=== PATIENT | male | born 1970 | race Two or more races ===

== ENCOUNTER 2025-01-12 15:13 | Emergency (ER) | payer MEDICAID, OTHER ==
[~2025-01-12] VITALS: Ht 175.3 cm; Wt 72.7 kg
[2025-01-12 15:40] VITALS: PULSE 101; RESP 14; O2SAT 96
[2025-01-12 16:14] LABS: Potassium 3.9 mmol/L (3.5-5.1); Sodium 144 mmol/L (136-145)
[2025-01-12 16:15] LABS: Anion Gap 10 (5-15); Carbon Dioxide 25 mmol/L (20-31)
[2025-01-12 16:16] LABS: Calcium 9.6 mg/dL (8.7-10.4)
[2025-01-12 16:19] LABS: Hematocrit 42.1 % (41.0-53.0); Hemoglobin 14.1 g/dL (13.5-17.5); Mean Corpuscular Hemoglobin 30.3 pg (28.0-32.0); Mean Corpuscular Volume 90.5 fL (80.0-100.0); Nucleated Red Blood Cells % 0.1 %
[2025-01-12 16:20] LABS: Glucose 86 mg/dL (74-106)
[2025-01-12 16:21] LABS: BUN/Creatinine Ratio 13.6 (10.0-20.0); Blood Urea Nitrogen 20 mg/dL (9-23)
[2025-01-12 16:34] LABS: Chloride 109 mmol/L (98-107)
[2025-01-12 16:52] LABS: Acetaminophen < 2.0 UG/ML (10.0-20.0); Salicylate < 3.0 mg/dL (-30)
[2025-01-12 19:23] LABS: Amphetamine Screen, Urine Pos (NEGATIVE); Barbiturate Scree,Urine Neg (NEGATIVE); Benzodiazephine Screen, Urine Neg (NEGATIVE); Cannabinoid Screen, Urine Neg (NEGATIVE); Cocaine Screen, Urine Neg (NEGATIVE); Opiate Scree,Urine Neg (NEGATIVE); Phencyclidine Screen, Urine Neg (NEGATIVE)
[2025-01-12 19:35] VITALS: PULSE 89; RESP 13; O2SAT 96
[2025-01-13 08:41] VITALS: PULSE 89; RESP 19; O2SAT 97
--- NOTE | 2025-01-13 11:17 | ED.PDOC ---
Psychiatric HPI Comments HPI: This is a 54 year old male BIBA presenting to the ED with chief complaint of SI. Patient reports that he wishes to end his own life and wants assistance at this time. Patient relays that he is not currently on any psychiatric medication, but has seen multiple psychiatrists throughout the years. Patient admits to ingesting 250mL of ETOH prior to arrival in the ED. Patient denies any HI, AH, VH, or further symptoms at this time. Initial Vitals BP: 104/70 HR: 109 RR: 18 O2: 98% Temp: 97.8F Past Medical History: HTN Past Surgical History: Left Hip Surgery Social History: Heavy ETOH use, denies drug use or cigarette use. Medications: Reviewed Allergies: NKDA MADDIE: MENTAL HPI: Poor Historian. 54-year-old male brought in by ambulance after the police has handcuffed him because he was running in the street which what sounds to be acting bizarre. Patient was brought here for psychiatric evaluation. Patient is homeless. Patient states that I no longer want to live. He does not want to share his plans however he did mentioned that he did attempt suicide in the past by shooting himself. Patient admits to use of alcohol but does not want to talk about his drug use. Patient wants to talk to his manager event and initially refused to speak to any camera but later agreed to speak to the psychiatrist via camera. Past Medical History: Past Surgical History: REVIEW OF SYSTEMS: CONSTITUTIONAL: Denies acute: fever, diaphoresis, chills, generalized weakness. HEAD: Denies acute: headache, photophobia Eyes: Denies acute: Double vision, vision loss, eye pain, eye discharge. EARS: Denies acute: tinnitus, hearing loss, ear discharge, ear pain, THROAT: Denies acute: sore throat, swelling, difficulty swallowing , pain with swallowing, change in voice. NECK: Denies acute: neck pain, neck swelling, stiff neck. HEART: Denies acute : chest pain, palpitations, LUNGS: Denies acute: SOB, wheezing, cough, hemoptysis ABDOMEN: Denies acute: abdominal pain, Nausea, Vomiting, diarrhea, melena , hematemesis, hematochezia SKIN: Denies acute: rash, redness, lesions, itchiness. EXTREMITIES: Denies acute: calf pain, numbness, tingling, weakness, denies pain in extremity. Denies acute: Low back pain. Neuro: Denies acute: focal neurological deficit, motor or sensory focal neurological deficit, tremors, seizure like activity, confusion, dizziness, change in mental status, loss of bowel or bladder function, cauda equina like symptoms. : Denies acute: dysuria, hematuria, flank pain, increase in urinary frequency. PSYCH: Denies acute: homicidal ideation. PHYSICAL EXAM: General: -----no---acute distress, awake and alert. Head: normocephalic, atraumatic. Neck: supple, trachea is midline, no swelling. Throat: Normal phonation. Eyes:, no erythema, no purulent discharge, no proptosis, no icterus. Heart: regular rate, regular rhythm, no significant murmur appreciated. Lungs: no apparent respiratory distress, Able to speak in full sentences. No wheezing, no rhonchi, no crackles. No stridors Clear to auscultation bilaterally. Abdomen: non tender to palpation, non distended, soft, no guarding, no rebound, + bowel sounds. Neuro: Awake, Alert, oriented to name, self, situation, follows commands GCS=15. Speech is normal. Skin: no petechia, no purpura, no cyanosis, non-pale, not jaundice. Lower extremities: --no - Pitting edema no deformity, no focal swelling, no calf TTP. Makes eye contact. moves all four extremities. Face: no apparent facial droop. ED COURSE: DISCLAIMER: This medical document was created using an electronic medical record system with voice recognition software and computerized dictation system. Although this document has been carefully reviewed, there might still be some phonetic and typographical errors. Occasional wrong-word or "sound-alike" substitutions may have occurred due to the inherent limitations of voice recognition software. These areas are purely typographical due to imperfections of the software programs and do not reflect any compromise in the patient's medical care. Please read the chart carefully and recognize, using context, where these substitutions have occurred. Chief Complaint: Mental Health Time Seen by MD: 15:45 Reviewed Notes: Medications, Allergies Information Source: Patient Mode of Arrival: EMS Was a procedure done? Was a procedure done?: No Psych Differential Dx Suicidal Differential Dx: Alcohol Abuse, Anxiety, Bipolar Disorder, Conversion Disorder, Depression, Homicidal, Laceration, Panic Disorder, Personality Disorder, Schizoprenia, Substance Abuse X-Ray, Labs, Meds, VS Vital Signs Date Time Temp Pulse Resp B/P (MAP) Pulse Ox O2 Delivery O2 Flow Rate FiO2 01/13/25 00:00 87 19 136/83 (100) 01/13/25 00:00 86 01/12/25 22:00 84 20 133/70 (91) 01/12/25 20:00 90 01/12/25 19:35 89 13 96 Room Air* 0 21 01/12/25 19:30 97.7 89 13 146/96 (113) 97 97.7 01/12/25 18:00 83 14 145/85 (105) 97 01/12/25 15:40 97.8 101 14 137/70 (92) 96 97.8 01/12/25 15:40 101 14 96 Room Air* 0 21 01/12/25 15:17 97.8 109 18 104/70 98 97.8 Lab Test 01/12/25 15:55 01/12/25 15:45 Range/Units White Blood Count 7.9 4.4-10.8 10^3/uL Red Blood Count 4.65 4.5-5.90 10^6/uL Hemoglobin 14.1 13.5-17.5 g/dL Hematocrit 42.1 41.0-53.0 % Mean Corpuscular Volume 90.5 80.0-100.0 fL Mean Corpuscular Hemoglobin 30.3 28.0-32.0 pg Mean Corpuscular Hemoglobin Concent 33.5 32.0-36.0 g/dL Red Cell Distribution Width 13.9 11.8-14.3 % Platelet Count 384 140-450 10^3/uL Mean Platelet Volume 6.7 L 6.9-10.8 fL Neutrophils (%) (Auto) 62.5 37.0-80.0 % Lymphocytes (%) (Auto) 28.2 10.0-50.0 % Monocytes (%) (Auto) 7.7 0.0-12.0 % Eosinophils (%) (Auto) 1.0 0.0-7.0 % Basophils (%) (Auto) 0.6 0.0-2.0 % Neutrophils # (Auto) 4.9 1.6-8.6 10 ^3/uL Lymphocytes # (Auto) 2.2 0.4-5.4 10 ^3/uL Monocytes # (Auto) 0.6 0-1.3 10 ^3/uL Eosinophils # (Auto) 0.1 0-0.8 10 ^3/uL Basophils # (Auto) 0 0-0.2 10 ^3/uL Nucleated Red Blood Cells 0.1 % Sodium Level 144 136-145 mmol/L Potassium Level 3.9 3.5-5.1 mmol/L Chloride Level 109 H 98-107 mmol/L Carbon Dioxide Level 25 20-31 mmol/L Anion Gap 10 5-15 Blood Urea Nitrogen 20 9-23 mg/dL Creatinine 1.47 H 0.700-1.30 mg/dL Glomerular Filtration Rate Calc 56 >90 mL/min BUN/Creatinine Ratio 13.6 10.0-20.0 Serum Glucose 86 74-106 mg/dL Calcium Level 9.6 8.7-10.4 mg/dL Salicylates Level < 3.0 -30 mg/dL Acetaminophen Level < 2.0 L 10.0-20.0 UG/ML Plasma/Serum Blood Alcohol 23.2 H <10 mg/dL Urine Opiates Screen Neg NEGATIVE Urine Fentanyl Screen Neg NEGATIVE Urine Barbiturates Screen Neg NEGATIVE Urine Phencyclidine Screen Neg NEGATIVE Urine Amphetamines Screen Pos NEGATIVE Urine Benzodiazepines Screen Neg NEGATIVE Urine Cocaine Screen Neg NEGATIVE Urine Cannabinoids Screen Neg NEGATIVE Time of 1ST Reevaluation: 16:45 Reevaluation 1ST: Unchanged Patient Education/Counseling: Diagnosis, Treatment Family Education/Counseling: No Family Present Assigned to Dr. dr. Hawkins. Patient is awaiting placement in a psychiatric facility. Comments MDM: patient presented with the above HPI.---psychiatric/suicidal ideation---workup was initiated. patient was found with the above mentioned diagnosis. the following medications were ordered: please refer to order lists of meds and tests obtained by myself Dr. Acharya. Patient ED course and VS have been stabilized. Patient has been reassessed in the ED and remained in a stable condition. Pertinent incidental findings were discussed with the patient and/or family. Patient/family voices understanding and is agreeable with plan. Patient has been observed in the ED adequate length of time to insure im provement/stability. Escalation of care considered: Consideration of escalation to observation or admission Patient was medically cleared. Patient was seen by Psychiatry. They recommend voluntary hold for psychiatric evaluation. They recommend trazodone 50 mg p.o. p.r.n. at nighttime only. All the reports of any imaging studies that were ordered by myself were reviewed by myself. Patient is awaiting manager social work in the morning and placement in his psychiatric facility. The care of this patient was signed out to my colleague Dr. Hawkins. Departure 1 Departure Time of Disposition: 16:17 Impression: Primary Impression: Patient needs psychiatric hold for evaluation Additional Impressions: Suicidal ideation Methamphetamine abuse Disposition: 30 STILL A PATIENT Condition: Stable Discharged With: Self Critical Care Note Critical Care Time?: No I personally scribed for VANESSA ACHARYA DO ([email or web address]) on 01/12/25 at 15:48. Electronically submitted by [employer] ([email or web address]). VANESSA ACHARYA DO Jan 12, 2025 15:48
--- NOTE | 2025-01-13 11:27 | DVHINCON2 ---
Date of Service if different f: Jan 12, 2025 Time of Service: 21:50 Consultation ([facility]) Consulting Physician: HAYDEN BARTLETT MD Labs Laboratory Tests Test 01/12/25 15:45 01/12/25 15:55 Urine Opiates Screen Neg (NEGATIVE) Urine Fentanyl Screen Neg (NEGATIVE) Urine Barbiturates Screen Neg (NEGATIVE) Urine Phencyclidine Screen Neg (NEGATIVE) Urine Amphetamines Screen Pos (NEGATIVE) Urine Benzodiazepines Screen Neg (NEGATIVE) Urine Cocaine Screen Neg (NEGATIVE) Urine Cannabinoids Screen Neg (NEGATIVE) White Blood Count 7.9 10^3/uL (4.4-10.8) Red Blood Count 4.65 10^6/uL (4.5-5.90) Hemoglobin 14.1 g/dL (13.5-17.5) Hematocrit 42.1 % (41.0-53.0) Mean Corpuscular Volume 90.5 fL (80.0-100.0) Mean Corpuscular Hemoglobin 30.3 pg (28.0-32.0) Mean Corpuscular Hemoglobin Concent 33.5 g/dL (32.0-36.0) Red Cell Distribution Width 13.9 % (11.8-14.3) Platelet Count 384 10^3/uL (140-450) Mean Platelet Volume 6.7 fL (6.9-10.8) Neutrophils (%) (Auto) 62.5 % (37.0-80.0) Lymphocytes (%) (Auto) 28.2 % (10.0-50.0) Monocytes (%) (Auto) 7.7 % (0.0-12.0) Eosinophils (%) (Auto) 1.0 % (0.0-7.0) Basophils (%) (Auto) 0.6 % (0.0-2.0) Neutrophils # (Auto) 4.9 10 ^3/uL (1.6-8.6) Lymphocytes # (Auto) 2.2 10 ^3/uL (0.4-5.4) Monocytes # (Auto) 0.6 10 ^3/uL (0-1.3) Eosinophils # (Auto) 0.1 10 ^3/uL (0-0.8) Basophils # (Auto) 0 10 ^3/uL (0-0.2) Nucleated Red Blood Cells 0.1 % Sodium Level 144 mmol/L (136-145) Potassium Level 3.9 mmol/L (3.5-5.1) Chloride Level 109 mmol/L (98-107) Carbon Dioxide Level 25 mmol/L (20-31) Anion Gap 10 (5-15) Blood Urea Nitrogen 20 mg/dL (9-23) Creatinine 1.47 mg/dL (0.700-1.30) Glomerular Filtration Rate Calc 56 mL/min (>90) BUN/Creatinine Ratio 13.6 (10.0-20.0) Serum Glucose 86 mg/dL (74-106) Calcium Level 9.6 mg/dL (8.7-10.4) Salicylates Level < 3.0 mg/dL (-30) Acetaminophen Level < 2.0 UG/ML (10.0-20.0) Plasma/Serum Blood Alcohol 23.2 mg/dL (<10) Appearance: Stated age Psychomotor activity: WNL Behavioral: Cooperative Eye contact: Appropriate Speech: WNL Affect: Mood Congruent Mood: Depressed, Dysphoric Thought processes: Linear/Goal-directed Thought content: WNL Suicidal ideations: Present Homicidal ideations: Absent Orientation: Person, Place, Time, Situation Memory intact: Recent Intellect: Average Abstractability: WNL Concentration: Adequate Attention: Adequate Judgement: Poor Insight: Fair Vitals Vital Signs Date Time Temp Pulse Resp B/P (MAP) Pulse Ox O2 Delivery O2 Flow Rate FiO2 01/12/25 20:00 90 01/12/25 19:35 13 96 Room Air* 0 21 01/12/25 19:30 97.7 146/96 (113) 97.7 Treatment plan discussed: With staff Medication adjusted: No Labs ordered: No Psychotherapy provided: No Type: Voluntary History of Present Illness Reason for Consult : psychiatric evaluation PER ED PHYSICIAN NOTE: This is a 54 year old male BIBA presenting to the ED with chief complaint of SI. Patient reports that he wishes to end his own life and wants assistance at this time. Patient relays that he is not currently on any psychiatric medication, but has seen multiple psychiatrists throughout the years. Patient admits to ingesting 250mL of ETOH prior to arrival in the ED. Patient denies any HI, AH, VH, or further symptoms at this time. PSYCHIATRIST HPI: The patient was seen and evaluated at [facility] via telepsychiatry platform. 54 yr old male reported He stated "I have a lot of prob lems. I don't want to live anymore." He said he is not a bad. He reported he has nothing in his life to live for. He said he doesn't want to hurt anybody, except for himself. He started thinking about this a few days ago. He had gone from one side of the road to the other. He was performing karate in the road and the industrial cleaning technician stopped. He had drank two 250ml bottles of vodka which he drank this evening. He said he needs help correcting his brain, because he stated he really doesn't want to hurt himself. He feels unsafe being on his own. He agrees to voluntary admission to the behavioral health unit. . He denied homicidal ideation, plan or intent. He denied having auditory or visual hallucinations. Past Psychiatric History : Diagnosed with depression. Past Medical History:none Current Medications: None NKDA Substance use: He drinks alcohol heavily. Meth use-has used on almost daily basis for 35 years. Denied use of other substance use. Social History : Homeless. Never , one 34 yr old daughter in [place]. Unemployed. Diagnosis: UNSPECIFIED DEPRESSIVE DISORDER F32. A; METH USE DISORDER; ALCOHOL USE DISORDER Formulation: This 54 yr old male appears to suffer from depression which is exacerbated by meth and alcohol use and is a moderate risk for suicide. He warrants admission to [facility] and agrees to voluntary admission to [facility]. Plan: 1.Transfer to behavioral health unit when bed available. 2. Legal-Voluntary status, but meets criteria for involuntary hold on basis of danger to self. 3. Medication: May start Trazodone 50mg qhs prn insomnia Recommend [place] protocol for alcohol withdrawal. 4. Contact psychiatry if further evaluation or follow up is desired. 5. case discussed with ED physician Dr Acharya. Assessment/Diagnosis/Plan Reviewed: Labs, Medications, Previous Orders HAYDEN BARTLETT MD Jan 12, 2025 21:54
[2025-01-13 16:39] VITALS: BP 148/84; PULSE 96; RESP 20; TEMP 97.7; O2SAT 98
== END 2025-01-12 16:00 | disposition short-term general hospital (02) ==
LOC: EDBD 15:13 → ER 15:13
DX: R45.851 Suicidal ideations (principal); F15.10 Other stimulant abuse, uncomplicated; F10.10 Alcohol abuse, uncomplicated; F32.A Depression, unspecified; I10 Essential (primary) hypertension; Z59.00 Homelessness unspecified; Y90.9 Presence of alcohol in blood, level not specified
CPT/HCPCS: 36415; 80048; 80307; 80320; 80329; 85025